=== PATIENT | male | born 1985 | race African-American/Black ===

== ENCOUNTER 2024-06-15 11:43 | Emergency (ER) | payer OTHER ==
[~2024-06-15] VITALS: Ht 175.3 cm; Wt 134.0 kg
[2024-06-15 12:00] VITALS: O2SAT 98
[2024-06-15 12:22] VITALS: BP 164/94; PULSE 98; RESP 17; TEMP 97.9; O2SAT 100
[2024-06-15 13:25] LABS: BASOPHILS % 0.3 % (0.0-2.0); EOSINOPHILS % 0.4 % (0.0-5.0); HEMATOCRIT. 42.5 % (42.0-52.0); HEMOGLOBIN. 14.4 g/dL (14.0-18.0); LYMPHOCYTES % 7.1 % (20.0-50.0); MEAN CORPUSCULAR HEMOGLOBIN 29.3 pg (28.0-32.0); MEAN CORPUSCULAR HGB CONC 33.8 g/dL (31.0-37.0); MEAN CORPUSCULAR VOLUME 86.6 fL (80.0-94.0); MEAN PLATELET VOLUME 8.9 fl (7.4-10.4); MONOCYTES % 6.3 % (2.0-8.0); NEUTROPHILS % 85.9 % (40.0-76.0); PLATELET 257 x1000/uL (130-400); RED BLOOD CELL COUNT 4.91 mill/uL (4.7-6.1); RED CELL DISTRIBUTION WIDTH 12.9 % (11.6-14.6)
[2024-06-15 13:33] LABS: CARBON DIOXIDE 24 mEq/L (21-32); CHLORIDE 100 mEq/L (98-107); POTASSIUM 4.2 mEq/L (3.5-5.1); SODIUM 135 mEq/L (136-145)
[2024-06-15 13:34] LABS: CALCIUM 9.8 mg/dL (8.7-10.4)
[2024-06-15 13:38] LABS: CREATININE 1.1 mg/dL (0.6-1.3); GLUCOSE 327 mg/dL (70-105)
[2024-06-15 13:39] LABS: UREA NITROGEN BLOOD 17 mg/dL (9-23)
[2024-06-15 13:41] LABS: ALANINE AMINOTRANSFERASE 50 IU/L (10-49); ASPARTATE AMINOTRANSFERASE 24 IU/L (<34); BILIRUBIN TOTAL 0.6 mg/dL (0.1-1.0); CREATINE KINASE 311 IU/L (46-171); PROTEIN TOTAL 7.6 g/dL (6.0-8.3)
[2024-06-15 13:51] LABS: CLARITY URINE CLEAR (CLEAR); COLOR URINE YELLOW (YELLOW); GLUCOSE URINE 3+ (NEGATIVE); KETONES URINE 1+ (NEGATIVE); LEUKOCYTE ESTERASE URINE NEGATIVE (NEGATIVE); NITRITE URINE NEGATIVE (NEGATIVE); OCCULT BLOOD URINE 2+ (NEGATIVE); PH URINE 5.5 (4.5-8.0); PROTEIN URINE 3+ (NEGATIVE); SPECIFIC GRAVITY URINE 1.044 (1.005-1.030); UROBILINOGEN URINE 0.2 E.U./dL (0.2-1.0)
[2024-06-15 14:23] LABS: BACTERIA URINE 1+; RBC URINE TNTC /hpf (0-2); SQUAMOUS EPITHELIAL CELL URINE 1+ /lpf (RARE/1+); WBC URINE 25-50 /hpf (0-2); YEAST URINE NONE SEEN
[2024-06-15] MEDS ORDERED: METF-414 MT (15:06)
[2024-06-15] MEDS ORDERED: CEFP200T13 MT (15:06)
[2024-06-18 07:10] LABS: CHLAMYDIA TRACHOMATIS NAA Negative (Negative); NEISSERIA GONORRHOEAE NAA Negative (Negative)
== END 2024-06-15 15:22 | disposition home or self-care (01) ==
LOC: ER 12:34
DX: N39.0 Urinary tract infection, site not specified (principal); E11.65 Type 2 diabetes mellitus with hyperglycemia
CPT/HCPCS: 36415; 80053; 81003; 82550; 85025; 87077; 87186; 87491; 87591; 99283

== ENCOUNTER 2024-12-16 09:02 | Emergency (ER) | payer MEDICAID ==
[~2024-12-16] VITALS: Ht 175.3 cm; Wt 131.0 kg
[~2024-12-16 09:02] MED LIST: CEFP200T13 MT; METF-414 MT
[2024-12-16 09:03] VITALS: O2SAT 98
[2024-12-16 09:07] VITALS: BP 179/102; PULSE 93; RESP 18; TEMP 36.8; O2SAT 98
[2024-12-16] MEDS ORDERED: FLUT9.9S BOTHNSTRLS (09:21)
[2024-12-16] MEDS: ACETAMINOPHEN 325MG TABLET PO SCH (09:45)
[2024-12-17] MEDS ORDERED: AMOX-494 MT (12:24)
== END 2024-12-16 10:02 | disposition home or self-care (01) ==
LOC: ER 09:02
DX: B34.9 Viral infection, unspecified (principal); E11.9 Type 2 diabetes mellitus without complications
CPT/HCPCS: 87070; 87430; 99283

== ENCOUNTER 2024-12-17 09:58 | Emergency (ER) | payer MEDICAID ==
[~2024-12-17] VITALS: Ht 175.3 cm; Wt 132.0 kg
[~2024-12-17 09:58] MED LIST changes: +FLUT9.9S BOTHNSTRLS
[2024-12-17 10:00] VITALS: O2SAT 99
[2024-12-17 10:13] VITALS: BP 182/117; PULSE 93; RESP 16; TEMP 37.5; O2SAT 100
[2024-12-17] MEDS: DEXAMETHASONE 10 MG/ML VIAL IV ONE (10:27)
[2024-12-17] MEDS ORDERED: AMOX-494 MT (12:24)
== END 2024-12-17 12:31 | disposition home or self-care (01) ==
LOC: ER 09:58
DX: J02.9 Acute pharyngitis, unspecified (principal); E11.9 Type 2 diabetes mellitus without complications; Z79.899 Other long term (current) drug therapy
CPT/HCPCS: 99283; 96374; 87430; 87070; J1100